=== PATIENT | male | born 1985 | race Caucasian/White ===

== ENCOUNTER 2017-07-25 16:56 | Emergency (ER) | payer OTHER ==
[~2017-07-25] VITALS: Ht 188 cm; Wt 116.3 kg
[2017-07-25] MEDS ORDERED: IBUPROFEN 600 MG TAB PO STA (17:08)
[2017-07-25] MEDS ORDERED: ACETAMINOPHEN 325 MG TAB PO ONE (18:30)
== END 2017-07-25 18:28 | disposition home or self-care (01) ==
LOC: FSED 16:56
DX: R50.9 Fever, unspecified (principal); B34.9 Viral infection, unspecified; R00.0 Tachycardia, unspecified
CPT/HCPCS: 83518; 87400; 99283